=== PATIENT | male | born 1930 | race Caucasian/White ===

== ENCOUNTER 2019-01-15 11:51 | Inpatient (IN) | payer OTHER ==
[~2019-01-15] VITALS: Ht 175.3 cm; Wt 54.0 kg
[2019-01-15] VITALS (13 sets, daily range): BP systolic 98–132
[~2019-01-15 11:51] MED LIST: ACET325T53 PO; CALC500T51 PO; DEXT1CAP3 PO; DONE10TA44 PO; LAM100 PO; MEMA28CA PO; MULT-33 PO; TAMS-11 PO; VERA180T7 PO; VITD2000 PO
[2019-01-15] MEDS ORDERED: NACL 0.9% 1,000 ML IV ONE ×2 (12:30→13:00)
[2019-01-15 12:48] LABS: BILIRUBIN,URINE NEGATIVE (NEGATIVE); BLOOD, URINE 2+ (NEGATIVE); CLARITY/URINE CLEAR (CLEAR); COLOR,URINE YELLOW (YELLOW); GLUCOSE,URINE NEGATIVE (NEGATIVE); KETONES,URINE NEGATIVE (NEGATIVE); LEUKOCYTE ESTERASE ,URINE TRACE (NEGATIVE); NITRITE, URINE NEGATIVE (NEGATIVE); PH,URINE 6.5 (5.0-8.0); PROTEIN URINE 2+ (NEGATIVE)
[2019-01-15 12:58] LABS: HEMATOCRIT 29.7 % (36-54); HEMOGLOBIN 9.7 g/dL (14.0-18.0); MEAN CORPUSCULAR HEMOGLOBIN 34 pg (27-31); MEAN CORPUSCULAR HGB CONC 33 % (32-36); MEAN CORPUSCULAR VOLUME 105 fL (79.0-98.0); RED BLOOD CELL COUNT(AUTO) 2.82 MIL/uL (4.2-6.2); WHITE BLOOD COUNT (AUTO) 7.3 K/uL (4.8-10.8)
[2019-01-15 12:59] LABS: PLATELET COUNT (AUTO) 325 K/uL (130-430)
[2019-01-15] MEDS ORDERED: LORazepam 2 MG/ML VIAL (FOR ER USE) IVP ONE ×2 (13:00→15:00)
[2019-01-15 13:05] LABS: INR 1.1 (0.80-1.20)
[2019-01-15 13:12] LABS: BACTERIA,URINE FEW /HPF (None Seen); MUCUS,URINE None Seen /LPF (None Seen); YEAST,URINE None Seen /HPF (None Seen)
[2019-01-15 13:13] LABS: ANION GAP 18 (5-15); CALCIUM 10.9 mg/dL (8.4-11.0); CHLORIDE 104 mmol/L (98-107); CREATININE 2.07 mg/dL (0.55-1.30); GLUCOSE 196 mg/dL (70-99); POTASSIUM 4.5 mmol/L (3.5-5.1); SODIUM SERUM 140 mmol/L (136-145); UREA NITROGEN, BLOOD 74 mg/dL (8-21)
[2019-01-15 13:17] LABS: ALANINE AMINOTRANSFERASE 28 U/L (12-78); ALBUMIN 2.3 g/dL (3.4-4.8); ASPARTATE AMINOTRANSFERASE 29 U/L (10-37); TOTAL BILIRUBIN 0.8 mg/dL (0.0-1.0)
[2019-01-15 13:23] LABS: BAND % (MANUAL) 16 % (0-6); LYMPHOCYTES % (MANUAL) 45 % (20-46)
[2019-01-15 13:24] LABS: BASOPHILS % (MANUAL) 0 % (0-2); EOSINOPHILS % (MANUAL) 0 % (0-7); MONOCYTES % (MANUAL) 2 % (0-11)
[2019-01-15] MEDS ORDERED: CLINDAMYCIN 900 mg/50mL D5W 50 ML IV ONE (13:30)
[2019-01-15] MEDS ORDERED: cefTRIAXone 1 GM IVPB PREMIX 50 ML IV ONE (13:30)
[2019-01-15] MEDS ORDERED: DOPamine PREMIX 250 ML IV ONE ×2 (14:30→23:06)
[2019-01-15] MEDS ORDERED: *HEPARIN PER PHARMACY XX ONE (14:45)
[2019-01-15] MEDS ORDERED: D5/0.45 NS 1,000 ML IV ONE (14:45)
[2019-01-15] MEDS ORDERED: PANTOPRAZOLE SODIUM 40 MG/VIAL (PROTONIX) IVP ONE (14:45)
[2019-01-15] MEDS ORDERED: HEPARIN SODIUM,PORCINE 5000 UNITS/ML VIAL IVP ONE (15:00)
[2019-01-15] MEDS ORDERED: HEPARIN SODIUM,PORCINE 3000 UNITS/0.6 ML BOLUS IVP PRN (15:00)
[2019-01-15] MEDS ORDERED: HEPARIN 25,000 UNITS in 250 ML PREMIX IV PRN (15:00)
[2019-01-15] MEDS ORDERED: HEPARIN SODIUM,PORCINE 2000 UNITS/0.4 ML BOLUS IVP PRN (15:00)
[2019-01-15] MEDS ORDERED: LORazepam 2 MG/ML VIAL (FOR ER USE) ONE (15:01)
[2019-01-15 15:24] LABS: TOTAL IRON BIND. CAPACITY 160 ug/dL (250-450)
[2019-01-15 15:28] LABS: ANION GAP 14 (5-15); CALCIUM 10.3 mg/dL (8.4-11.0); CHLORIDE 110 mmol/L (98-107); CREATININE 1.89 mg/dL (0.55-1.30); GLUCOSE 124 mg/dL (70-99); POTASSIUM 5.4 mmol/L (3.5-5.1); SODIUM SERUM 146 mmol/L (136-145); UREA NITROGEN, BLOOD 73 mg/dL (8-21)
[2019-01-15] MEDS ORDERED: ALBUTEROL SULFATE 0.083% 2.5 MG/3 ML VIAL.NEB INH PRN (15:45)
[2019-01-15] MEDS ORDERED: IPRATROPIUM BROM 0.5 MG/2.5 ML VIAL.NEB (ATROVENT) INH PRN (15:45)
[2019-01-15] MEDS ORDERED: PIPERACILLIN/TAZO 2.25G/DEX-IS 50 ML IV ONE (15:45)
[2019-01-15] MEDS ORDERED: MORPHINE 4 MG/ML INJ. SYRINGE IVP PRN (15:45)
[2019-01-15] MEDS ORDERED: 0.45% NACL 1,000 ML IV SCH (15:45)
[2019-01-15] MEDS: LORazepam 2 MG/ML VIAL IVP PRN ×2 (16:07→21:08)
[2019-01-15] MEDS ORDERED: PIPERACILLIN/TAZO 2.25G/DEX-IS 50 ML IV SCH ×2 (18:00→22:00)
[2019-01-15] MEDS ORDERED: SODIUM POLYSTYRENE SULFONATE 15 GM/60 ML UDBTL NG ONE (18:30)
[2019-01-15] MEDS ORDERED: methylPREDNISolone SOD SUCC/PF 62.5 MG/ML VIAL IVP ONE (18:30)
[2019-01-15] MEDS: IPRATROPIUM BROM 0.5 MG/2.5 ML VIAL.NEB (ATROVENT) INH SCH (19:48)
[2019-01-15] MEDS: ALBUTEROL SULFATE 0.083% 2.5 MG/3 ML VIAL.NEB INH SCH (19:48)
[2019-01-15] MEDS ORDERED: PANTOPRAZOLE SODIUM 40 MG/VIAL (PROTONIX) IVP SCH (21:00)
[2019-01-15] MEDS ORDERED: DOPamine PREMIX 250 ML IV PRN (23:00)
[2019-01-15] MEDS ORDERED: ATROPINE SULFATE 1 MG/10 ML SYRINGE IVP PRN (23:30)
[2019-01-15] MEDS ORDERED: ACETAMINOPHEN 650 MG/20.3 ML UDC GT PRN (23:30)
[2019-01-15] MEDS ORDERED: ASPIRIN 81 MG TAB.CHEW PO SCH (23:30)
[2019-01-16] VITALS: BP_SYST 114
[2019-01-16 01:00] VITALS: BP_SYST 104
[2019-01-16] MEDS: ALBUTEROL SULFATE 0.083% 2.5 MG/3 ML VIAL.NEB INH SCH (01:09)
[2019-01-16] MEDS: IPRATROPIUM BROM 0.5 MG/2.5 ML VIAL.NEB (ATROVENT) INH SCH (01:10)
[2019-01-16] MEDS ORDERED: ASPIRIN 81 MG TAB.CHEW PO SCH (09:00)
[2019-01-16] MEDS ORDERED: PANTOPRAZOLE SODIUM 40 MG/VIAL (PROTONIX) IVP SCH (09:00)
== END 2019-01-16 02:15 | disposition expired | DRG 871 ==
LOC: SED 11:51 → SIC 14:30
PROVIDERS: ADMIT Internal Medicine; ATTEND Internal Medicine
PROC: 0BH17EZ Insertion of Endotracheal Airway into Trachea, Via Natural or Artificial Opening (ICD-10-PCS; principal; 2019-01-15)
PROC: 5A1935Z Respiratory Ventilation, Less than 24 Consecutive Hours (ICD-10-PCS; 2019-01-15)
PROC: 02HV33Z Insertion of Infusion Device into Superior Vena Cava, Percutaneous Approach (ICD-10-PCS; 2019-01-15)
PROC: B548ZZA Ultrasonography of Superior Vena Cava, Guidance (ICD-10-PCS; 2019-01-15)
DX: A41.9 Sepsis, unspecified organism (principal); J69.0 Pneumonitis due to inhalation of food and vomit; J96.01 Acute respiratory failure with hypoxia; I21.9 Acute myocardial infarction, unspecified; R65.21 Severe sepsis with septic shock; I50.43 Acute on chronic combined systolic (congestive) and diastolic (congestive) heart failure; N17.0 Acute kidney failure with tubular necrosis; E87.0 Hyperosmolality and hypernatremia; I27.20 Pulmonary hypertension, unspecified; G30.9 Alzheimer's disease, unspecified; F02.80 Dementia in other diseases classified elsewhere, unspecified severity, without behavioral disturbance, psychotic disturbance, mood disturbance, and anxiety; I11.0 Hypertensive heart disease with heart failure; N40.0 Benign prostatic hyperplasia without lower urinary tract symptoms; D64.9 Anemia, unspecified; Z66 Do not resuscitate; I46.9 Cardiac arrest, cause unspecified; Z93.0 Tracheostomy status; Z79.899 Other long term (current) drug therapy; Z88.5 Allergy status to narcotic agent
CPT/HCPCS: 36415; 36600; 71045; 80048; 80053; 81000-TC; 82607; 82746; 82803-TC; 83540-TC; 83550-TC; 83605; 84484; 85007; 85027; 85610-TC; 85730-TC; 87040-TC; 87070-TC; 87081; 87086; 87186-TC; 87205-TC; 93005; 93306; 94002; 94003; 94640; 96361; 96365; 96368; 96375; 99291; C1751; C9113; J0696; J1265; J1644; J2060; J2543; J2930; J3490; J7030; J7042; J7613